=== PATIENT | female | born 1970 | race Caucasian/White ===

== ENCOUNTER → 2022-01-14 | Day surgery (SDC) | payer OTHER, MEDICARE ==
[~2022-01-14] VITALS: Ht 163.8 cm; Wt 68.5 kg
[~2022-01-14] MED LIST: BACTRIM DS TAB1 EACH PO; CLEOCIN300 MG PO; DICLOFENAC SODI75 MG PO; IBUPROFEN800 MG PO; PERCOCET 5-3251 EACH PO; PHENERGAN25 M1 PO; VITAMIN D350 MC3 PO
== END | disposition home or self-care (01) ==
LOC: FAS 06:53
DX: Z12.11 Encounter for screening for malignant neoplasm of colon (principal); F17.210 Nicotine dependence, cigarettes, uncomplicated; Z80.0 Family history of malignant neoplasm of digestive organs
CPT/HCPCS: J2704; J7120